=== PATIENT | male | born 1960 | race Caucasian/White ===

== ENCOUNTER 2025-08-21 12:29 | Outpatient (CLI) | payer MEDICARE, SELFPAY ==
--- NOTE | ~2025-08-21 | DEXA_ITS ---
Bone Density Report Name: SWAPNIL LADD Age: 65 Sex: Male Ethnicity: White Date of : 1960 Indication: height loss; Referring Provider: WHITNEY*, LOCO Andujar Study: Bone densitometry was performed. Exam Date: August 21, 2025 Accession number: [id number] Bone Density: Region BMD T-score Z-score Classification AP Spine(L1-L4) 1.184 0.8 1.7 Normal Femoral Neck (Left) 0.643 -2.1 -1.0 Osteopenia Total Hip (Left) 0.826 -1.4 -0.8 Osteopenia Femoral Neck (Right) 0.666 -1.9 -0.8 Osteopenia Total Hip (Right) 0.779 -1.7 -1.1 Osteopenia Total Hip Mean 0.803 -1.6 -1.0 Osteopenia World Health Organization criteria for BMD impression classify patients as: Normal (T-score at or above -1.0), Osteopenia (T-score between -1.0 and -2.5), or Osteoporosis (T-score at or below -2.5). 10-year Fracture Risk(1): Major Osteoporotic Fracture 7.8% Hip Fracture 3.0% Reported Risk Factors: [place] (), Neck BMD=0.643, BMI=22.1, smoking (1) FRAX(R) Version 3.08. Fracture probability calculated for an untreated patient. Fracture probability may be lower if the patient has received treatment. Clinical Information Provided by Patient: Smokes Has used the following medications: Vitamin D, Calcium Patient maximum height was 73.0 Drinks caffeinated beverages Impression: The patient has low bone mass, based on the Left Femoral Neck T-score. The patient has an estimated ten-year risk of hip fracture of 3% and an estimated ten-year risk of major fracture of 7.8%, based on the WHO FRAX algorithm. The patient has risk factors, including: smoking. Discussion: BONE DENSITY IS LOW AT ONE OR MORE SKELETAL SITES. THE PATIENT'S BMD AND CLINICAL RISK FACTORS CONTRIBUTE TO THIS PATIENT'S INCREASED RISK OF FRACTURE. This patient's lowest T-score is low at one or more skeletal sites. It meets the World Health Organization's (WHO) criteria for ?low bone mass? (T-score between -1.0 and -2.5). The patient's 10-year risk of hip fracture as calculated by FRAX exceeds the threshold where pharmacological therapy is recommended by the National Osteoporosis Foundation (NOF). However, all treatment decisions require clinical judgment and consideration of individual patient factors, including patient preferences, comorbidities, previous drug use, risk factors not captured in the FRAX model (e.g., frailty, falls, vitamin D deficiency, increased bone turnover, interval significant decline in bone density) and possible under or overestimation of fracture risk by FRAX. The patient should follow a healthful lifestyle (good nutrition with adequate calcium and vitamin D, and appropriate weight-bearing exercise). Follow-Up: Consider repeating this study in 2 years to reassess this patient's status, or sooner if there is some new clinical indication. Reported by: TIEN on 08/21/2025 2:00:00 PM. Reviewed, dictated and finalized at location A.
--- OUTSIDE RECORDS SUMMARY | 2025-08-21 12:45 | XMS_ITS | Data Portability ---
Author Organization [place] [facility] Main Office Address [address] [place] [address] Assessment Encounter Date Assessment Date Assessment LastModified by Organization Details LastModified Time 07/12/2024 07/12/2024 By today's history and exam the patient is noted to have resolving olecranon bursitis of the right elbow. This spontaneously drained and the antibiotics have appeared to help clear things up he has no evidence of infection at this time. X-rays show what appears to be a small possible chip fracture of the olecranon from his fall in November on the ice. This is very subtle in nature. I have advised him to continue to use Neosporin ointment on the small skin lesion where the opening and spontaneous drainage occurred he will keep a Band-Aid on it he will avoid getting into things like swimming pools hot tubs or lakes and soaking it for now he did ask about swimming. I have advised him to give it more time wait till that area in the skin is completely healed. He will finish out his oral antibiotics prescribed by his primary care physician and avoid leaning on the elbow. I think for now he can be dismissed if the fluid collection returns restarts to have any signs of infection whatsoever he will call immediately he voiced understanding and agrees above plan call for any further problems difficulties or questions. [email or web address] Not available 07/12/2024 16:47:08 Plan of Treatment Reminders Order Date Submit Date Provider Last Modified By Organization Details Last Modified Time Details Appointments None recorded. Lab osmolality, serum 2024 025 [email or web address] [facility], [address] [address], [place], [address], 12:18:41 osmolality, urine 2024 025 [email or web address] [facility], [address], [place], [address], 12:18:42 PSA, serum or plasma 2024 025 [facility], [address], [place], [address], 12:18:42 CMP, serum or plasma 2024 025 [email or web address] [facility] (Lab), [address] [place], [address], 16:52:00 lipid panel, serum 2024 025 [email or web address] [facility] (Lab), [address] [place], [address], 16:52:00 CBC w/ auto diff 2024 025 [email or web address] [facility] (Lab), [address] [place], [address], 16:52:00 Referral None recorded. Procedures None recorded. Surgeries None recorded. Imaging XR, elbow 2023 024 [email or web address] [facility], [address], [place], [address], 4 16:53:47 Medication Orders clindamycin HCl 300 mg capsule 2023 024 [email or web address] [id number], [address] , [place], [place], [id number], 15:32:16 Patient TargetsNo targets recorded. Patient Instructions Encounter Date Encounter Id Patient Instructions Last Modified By Organization Details Last Modified Time 06/30/2024 [id number] Infection of the right olecranon bursa, history of chronic pancreatitis, peripheral vascular disease and GERD all clinically stable. Will set up with doctors due for further evaluation of the elbow place on some clindamycin 300 mg q.i.d. In the interim. Additional Orders - Directives - Recommendations 1. Set up with Dr. Deal for evaluation right elbow drainage 2. x-rays of the right elbow Keep Appointment: Thu 01:30 PM [place] Portions of the record may have been created with voice recognition software. Occasional wrong-word or s ound-a-like substitutions may have occurred due to the inherent limitations of voice recognition software. Read the chart carefully and recognize, using context, where substitutions have occurred. [email or web address] Not available 06/30/2024 11:31:15 09/28/2024 [id number] Follow-up for essential hypertension, peripheral vascular disease, hyperlipidemia and osteopenia all clinically stable. No need for any blood work at this time. Will continue on current Rx. Was given a influenza shot. Will follow-up in four months. Continue on current Rx Additional Orders - Directives - Recommendations 1. Bone density scan with history of osteopenia Follow Up: 4 Months Approximate Date: 01/26/2025 Portions of the record may have been created with voice recognition software. Occasional wrong-word or s ound-a-like substitutions may have occurred due to the inherent limitations of voice recognition software. Read the chart carefully and recognize, using context, where substitutions have occurred. [email or web address] Not available 09/28/2024 14:59:45 03/28/2025 [id number] Follow-up essent ial hypertension, GERD, hyperlipidemia, peripheral vascular disease and chronic pancreatitis all clinically stable. Will continue with current medications. Will check blood work in the form of CBC, CMP, lipid. Continue on current Rx and follow-up in four months Follow Up: 4 Months Approximate Date: 07/26/2025 Portions of record are template driven. When necessary additional context will be provided. Additionally some portions have been created with voice recognition software. Occasional wrong-word or s ound-a-like substitutions may have occurred due to the inherent limitations of voice recognition software. Read the chart carefully and recognize, using context, where substitutions may have occurred. Created: Thomas Bernstein M.D. 03.28.2025 02:39 PM [email or web address] Not available 03/28/2025 15:39:06 08/01/2025 [id number] Medicare wellnes s evaluation risk assessment stable. Follow-up for essential hypertension, hyperlipidemia, peripheral vascular disease, hyponatremia. Plan to check a serum osmolality and urine osmolality. Pending those results may need further evaluation. Will continue on current Rx will get a PSA as well as bone density scan. Advised on FDA Recommended Immunizations including but not limited to Influenza, COVID,Tetanus,TDAP, Pneumococcal,RSV and Shingles Additional Orders - Directives - Recommendations 1. PSA 0.76 NG/ML N 2. DEXA Scan Follow Up: 4 Months Approximate Date: 11/29/2025 Portions of record are template driven. When necessary additional context will be provided. Additionally some portions have been created with voice recognition software. Occasional wrong-word or s ound-a-like substitutions may have occurred due to the inherent limitations of voice recognition software. Read the chart carefully and recognize, using context, where substitutions may have occurred. Created: Thomas Bernstein M.D. 08.01.2025 03:23 PM [email or web address] Not available 08/01/2025 16:23:06 Reason for Referral None Reported. Results Created Date Observation Date Name Description Value Unit Range Abnormal Flag Note LastModifiedBy Organization Detail LastModifiedTime 07/12/20 24 XR, elbow No observ ation record ed. [email or web address] [facility] [address], [place], [address], 07/12/2024 16:52:42 08/03/20 24 08/03/2024 US, duple x, arter ial, lower extre mity, compl ete No observ ation record ed. [email or web address] [facility] [address], [place], [address], 08/03/2024 15:16:52 08/11/20 24 08/10/2024 US, carot id arter y No observ ation record ed. [email or web address] [facility] [address], [place], [address], 08/12/2024 00:11:35 10/04/20 10/04/2024 pharm acolo gic nucle ar stres s test No observ ation record ed. [address] [facility] [address], [place], [address], 10/04/2024 17:22:20 11/11/20 24 11/11/2024 US, echoc ardio gram No observ ation record ed. [address] [facility] [address], [place], [address], 11/11/2024 13:41:04 11/11/20 24 11/11/2024 US, duple x, arter ial, lower extre mity, compl ete No observ ation record ed. [address] [facility] [address], [place], [address], 11/11/2024 13:41:52 11/11/20 24 11/11/2024 US, duple x, renal arter y No observ ation record ed. [address] [facility] [address], [place], [address], 11/11/2024 13:55:30 Result Notes None recorded. Problems Name Problem SNOMED Code Status Onset Date Resolution Date Notes Provider Name and Address Organization Details Recorded Time Tobacco user 448270321 Active Not Available [facility] 3 01:17:51 Injury of ankle 323257842 Active Not Available [facility] 3 01:17:51 CT of abdomen abnormal 7586967919360 9107 Active Not Available [facility] 3 01:17:51 Lateral epicondyli tis 967075215 Active Not Available [facility] 3 01:17:51 Chronic pancreatit is 633532616 Active Not Available [facility] 3 01:17:51 Gastroesop hageal reflux disease 218066728 Active Not Available [facility] 3 01:17:51 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 Active Not Available [facility] 3 01:17:51 Headache 71011350 Active Not Available [facility] 3 01:17:51 Shoulder joint pain 516651611 Active Not Available [facility] 3 01:17:51 Pain in calf 653052908 Active Not Available [facility] 3 01:17:51 Depressive disorder 33692735 Active Not Available [facility] 3 01:17:51 Inguinal hernia 530778309 Active Not Available [facility] 3 01:17:51 Epidermoid cyst of skin 172856959 Active Not Available [facility] 3 01:17:51 Pilonidal cyst 06188976 Active Not Available [facility] 3 01:17:51 Transient hypertensi on 31814443 Active Not Available [facility] 3 01:17:51 Sebaceous cyst of scrotum 18437537 Active Not Available [facility] 3 01:17:51 Closed fracture of fifth metatarsal bone 98509727 Active Not Available [facility] 3 01:17:51 Low back pain 724592778 Active 2021 Not Available [facility] 3 01:17:51 Allergic rhinitis 02322127 Active 2021 Not Available [facility] 3 01:17:51 Chronic low back pain 647233362 Active 2021 Not Available [facility] 3 01:17:51 Osteopenia 314281451 Active 2021 Not Available [facility] 3 01:17:51 Testicular hypofuncti on 330138530 Active 2022 Not Available [facility] 3 01:17:51 Spinal stenosis of lumbar region 06749190 Active 2023 Thomas Bernstein MD [address] [address], [place], [address] , [facility] [employer] [facility] 4 12:27:52 Disorder of prostate 63434295 Active 2023 Thomas Bernstein MD [address], [place], [address] , [facility] 4 12:29:30 Infection of olecranon bursa of right elbow 2414507094481 101 Active 2023 Thomas Bernstein MD [address], [address], [place], [address] , [facility] 4 11:23:33 Peripheral vascular disease 875158307 Active 2023 Thomas Bernstein MD [address], [address], [place], [address] , [facility] 4 11:25:50 Pain of right elbow joint 0099240292715 9109 Active 2023 Hailee Zapata CNA null, [place] [facility] 4 15:35:24 Bursitis of olecranon of right elbow 9420791767912 08 Active 2023 JOSH Marmolejo [address], [address], [place], [address] , [facility] 4 16:51:02 Hyperchole sterolemia 11913491 Active 2023 Thomas Bernstein MD [address], [address], [place], [address] , [facility] 4 14:55:58 Essential hypertensi on 42639675 Active 2023 Thomas Bernstein MD [address], [facility] [address], [place], [address] , [facility] 4 14:57:14 Chronic rhinitis 36856270 Active 2024 Norma Amador CMA null, [place] [facility] 5 15:47:56 Hyponatrem ia 73289832 Active 2024 Thomas Bernstein MD [address], [facility] [address], [place], [address] , [facility] 5 16:17:41 Osteopenia with high fracture risk 3535427299808 Active 2024 [facility] 16:34:54 Problem Notes None recorded. Procedures Surgical History Date Name Laterality Status Provider Name and Address Organization Details Recorded Time Endoscopy completed Not Available [facility] 0 01/21/2023 05:54:22 colonoscopy completed Not Available [facility] 01/21/2023 05:54:22 excision of basal cell carcinoma completed Hailee Zapata CNA [facility] [employer] [facility] 07/12/2024 15:34:41 Imaging Results None recorded. Procedure Notes None recorded. Medical Equipment None Reported. Allergies No known drug allergies Medications Name Sig Start Date Stop Date Status Note LastModified by Organization Details LastModified Time nifedipine ER 30 mg tablet,exte nded release 24 hr TAKE 1 TABLET BY MOUTH DAILY active Not Available Not Available No t Available Augmentin 875 mg-125 mg tablet Take 1 tablet every 12 hours by oral route. 12/28 completed Not Available Not Available Not Available prednisone 10 mg tablet active Not Available Not Available Not Available atorvastati n 20 mg tablet TAKE 1 TABLET BY MOUTH DAILY active Not Available Not Available No t Available clindamycin HCl 300 mg capsule TAKE 1 CAPSULE BY MOUTH EVERY 6 HOURS 07/12 completed Not Available Not Available Not Available sildenafil 50 mg tablet TAKE 1 TABLET BY MOUTH EVERY DAY 1 HOUR BEFORE SEXUAL ACTIVITY NEEDED active Not Available Not Available No t Available benzonatate 200 mg capsule Take 1 capsule 3 times a day by oral route. 03/06 completed Not Available Not Available Not Available Zithromax Z-Trent 250 mg tablet Take 2 TABLET EVERY DAY by oral route for 1 day then one daily 09/13 completed Not Available Not Available Not Available acetaminoph en 300 mg-codeine 30 mg tablet TAKE 1 TABLET BY MOUTH EVERY 6 HOURS NEEDED. active Not Available Not Available No t Available clopidogrel 75 mg tablet TAKE 1 TABLET BY MOUTH DAILY active Not Available Not Available No t Available aspirin 81 mg tablet,sha yed release TAKE 1 TABLET BY MOUTH EVERY DAY active Not Available Not Available No t Available oxycodone-a cetaminophe n 5 mg-325 mg tablet 04/22 completed Not Available Not Available Not Available Vitamin C 1,000 mg tablet Take 1 tablet every day by oral route. 2021 active Not Available Not Available Not Avai lable lorazepam 0.5 mg tablet Take 1 tablet 3 times a day by oral route as needed. 07/12 completed Not Available Not Available Not Available hyoscyamine ER 0.375 mg tablet,exte nded release,12 hr Take 1 tablet every 12 hours by oral route as needed. 09/24 completed Not Available Not Available Not Available hyoscyamine 0.125 mg disintegrat ing tablet Place 1 tablet every 4 hours by sublingua l route. 03/06 completed Not Available Not Available Not Available pantoprazol e 40 mg tablet,sha yed release TAKE 1 TABLET BY MOUTH DAILY active Not Available Not Available No t Available hyoscyamine 0.125 mg sublingual tablet active Not Available Not Available Not Available losartan 25 mg tablet TAKE 1 TABLET BY MOUTH DAILY active Not Available Not Available No t Available Valtrex 1 gram tablet Take 1 tablet 3 times a day by oral route. 02/05 completed Not Available Not Available Not Available vitamin B complex tablet Take 1 tablet every day by oral route. 2021 active Not Available Not Available Not Avai lable acetaminoph en 300 mg-codeine 60 mg tablet Take 1 tablet every 6 hours by oral route. 04/22 completed Not Available Not Available Not Available hydrochloro thiazide 25 mg tablet TAKE 1 TABLET BY MOUTH EVERY DAY active Not Available Not Available No t Available ergocalcife rol (vitamin D2) 1,250 mcg (50,000 unit) capsule active Not Available Not Available Not Available Tenmile 7.5 mg-325 mg tablet Take 1 tablet every 6 hours by oral route. 05/12 completed Not Available Not Available Not Available methylpredn isolone 4 mg tablets in a dose pack FOLLOW PACKAGE DIRECTION S 04/13 completed Not Available Not Available Not Available fluticasone propionate 50 mcg/actuati on nasal spray,suspe nsion SPRAY 2 SPRAYS IN EACH NOSTRIL TWICE DAILY NEEDED active Not Available Not Available No t Available ipratropium bromide 21 mcg (0.03 %) nasal spray SPRAY 2 SPRAYS IN EACH NOSTRIL 2-3 TIMES PER DAY active Not Available Not Available No t Available Os-Sharif 500 + D3 500 mg-5 mcg (200 unit) tablet Take 1 tablet twice a day by oral route. 01/06 completed Not Available Not Available Not Available escitalopra m 10 mg tablet TAKE 1 TABLET BY MOUTH EVERY DAY active Not Available Not Available No t Available Tylenol-Cod eine #3 one every six hours as needed 05/12 completed Not Available Not Available Not Available Os-Sharif 500 + D3 twice a day 2012 active Not Available Not Available Not Avai lable vitamin E (dl, acetate) 180 mg (400 unit) capsule Take 1 capsule every day by oral route. 2021 active Not Available Not Available Not Avai lable Creon 12,000-38,0 00-60,000 unit capsule,del ayed release active Not Available Not Available Not Available Creon one with meals daily 2012 active Not Available Not Available Not Avai lable fluticasone prop.50 mcg spray,suspe n-sod.chlor monica 0.9% nasal spray kit shake liquid and use 2 sprays in each nostril twice a day 12/07 completed Not Available Not Available Not Available Sutab 1.479-0.188 -0.225 gram tablet DIRECTED 04/25 completed Not Available Not Available Not Available Vitals Date Recorded Body height Body mass index (BMI) Body weight Heart rate Body temperature Oxygen saturation Oxygen saturation in Arterial blood by Pulse oximetry Systolic And Diastolic Provider Name and Address Organization Details Last Updated DateTime 5 182.88 cm 21.8 kg/m2 33601.5 8 g 74 /min 97 [degF] 97 % 97 % 140/88 mm[Hg] Sue Arellano [facility] [employer] 5 15:21:51 Date Recorded Body height Body mass index (BMI) Body weight Heart rate Body temperature Oxygen saturation Oxygen saturation in Arterial blood by Pulse oximetry Systolic And Diastolic Provider Name and Address Organization Details Last Updated DateTime 4 180.34 cm 22.6 kg/m2 69799.9 6 g 71 /min 97.9 [degF] 98 % 98 % 142/96 mm[Hg] CLINT Osei [place] [employer] [facility] [employer] [facility] 4 11:01:27 Date Recorded Body height Body mass index (BMI) Body weight Provider Name and Address Organization Details Last Updated DateTime 07/12/2024 182.88 cm 22.4 kg/m2 08441.74 g Hailee Zapata CNA [facility] [employer] [facility] 07/12/2024 15:31:39 Date Recorded Body height Body mass index (BMI) Body weight Heart rate Body temperature Oxygen saturation Oxygen saturation in Arterial blood by Pulse oximetry Systolic And Diastolic Provider Name and Address Organization Details Last Updated DateTime 5 182.88 cm 22 kg/m2 76958.9 6 g 68 /min 97.2 [degF] 97 % 97 % 120/78 mm[Hg] Sue Arellano [facility] [employer] [facility] 5 15:59:17 Date Recorded Body height Body weight Heart rate Body temperature Oxygen saturation Oxygen saturation in Arterial blood by Pulse oximetry Systolic And Diastolic Provider Name and Address Organization Details Last Updated DateTime 4 182.88 cm 15513.9 3 g 69 /min 97 [degF] 98 % 98 % 150/90 mm[Hg] CLINT Osei [facility] 4 14:48:05 Social History Question Answer Notes LastModified by Organizat ion Details LastModified Time Tobacco Smoking Status Current Every Day Smoker Not Available [facility] 01/21/2023 05:54:08 What Is Your Level Of Caffeine Consumption? Moderate [id number] Information not available 01/21/2023 How Much Tobacco Do You Chew? None [id number] Information not available 01/21/2023 In The 14 Days Before Symptom Onset, Have You Had Close Contact With A Laboratory-confirm ed COVID-19 While That Case Was Ill? No [id number] Information not available 01/21/2023 In The 14 Days Before Symptom Onset, Have You Had Close Contact With A Person Who Is Under Investigation For COVID-19 While That Person Was Ill? No [id number] Information not available 01/21/2023 What Type Of Diet Are You Following? REGULAR [id number] Information not available 01/21/2023 Which Illicit Or Recreational Drugs Have You Used? None [id number] Information not available 01/21/2023 What Was The Date Of Your Most Recent Tobacco Screening? 12/17/2018 [id number] Information not available 01/21/2023 How Much Tobacco Do You Smoke? 0.5 PPD [id number] Information not available 01/21/2023 How Many Years Have You Smoked Tobacco? 30 [id number] Information not available 01/21/2023 Sex: Unknown Functional Status Question Answer Note LastModified by Organizat ion Details LastModified Time What is your level of alcohol consumption? Moderate [email or web address] Information not available 07/12/2024 Do you or have you ever used smokeless tobacco? 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 Never used electronic cigarettes [id number] Information not available 01/21/2023 What is your exercise level? Occasional [id number] Information not available 01/21/2023 Mental Status None recorded. Family History Relationship Description Onset Age of this Age Resolved Age Notes LastModified by Organization Details LastModified Time Mother Malignant tumor of pancreas 75 [id number] Not available 01/21/2023 05:54:24 Mother Seizure disorder 75 [id number] Not available 01/21/2023 05:54:24 Mother Hypoglycemia 75 MIGRATION.0 30 [id number] Not available 01/21/2023 05:54:24 Mother Cerebrovascu lar accident 75 [id number] Not available 01/21/2023 05:54:24 Father Malignant neoplasm of lung 66 [id number] Not available 01/21/2023 05:54:24 Sister Hypertensive disorder [id number] Not available 01/21/2023 05:54:24 Medical History Condition Response NERVE DISEASE N BLINDNESS N RHEUMATIC FEVER N KIDNEY STONES N BLADDER PROBLEMS N MRSA N OTHER # 1 N POLIO N LUNG DISEASE/DISORDER N HISTORY OF DRUG ABUSE N COPD N RADIATION / CHEMOTHERAPY N Other # 2 N BLOOD DISEASES N EAR OR HEARING PROBLEMS N MUMPS N SHINGLES N DEPRESSION (INCLUDING POST ) Y BOWEL PROBLEMS N STROKE/TIA N ULCERS N BENIGN PROSTATIC HYPERPLASIA N MEASLES N HYPOTENSION N MYOCARDIAL INFARCTION N OBESITY N GERD/NAUSEA N ANEURYSM N URINARY/BLADDER/KIDNEY PROBLEMS N CORONARY ARTERY DISEASE (CAD) N ADDICTION CONCERNS N Impotence N ENDOMETRIOSIS N USE OF BLOOD THINNERS N SKIN PROBLEMS N GASTROINTESTINAL DISORDER N PERIPHERAL VASCULAR DISEASE N MUSCLE,JOINT OR BONE PROBLEMS N GASTROINTESTINAL BLEEDING N BLOOD CLOTS N ASTHMA N CATARACTS N ERECTILE DYSFUNCTION N VARICOSITIES N GI PROBLEMS N Low Testosterone N INFERTILITY N AIDS/HIV N CHEMOTHERAPY / RADIATION N LIVER DISEASE N MALE HYPOGONADISM N HYPERTENSION Y Deficiency N TOURETTE'S N ANXIETY DISORDER N BLOOD TRANSFUSION N ANEMIA/BLOOD DISORDER N CHRONIC EAR INFECTIONS N BRONCHITIS N TUBERCULOSIS N GLAUCOMA N FOOT PROBLEM N DIVERTICULITIS N SLEEP APNEA N CHICKENPOX N INFECTIOUS DISEASE N PROSTATE N HEART ARRHYTHMIA N INSOMNIA N HIGH CHOLESTEROL / HYPERLIPIDEMIA N EYE PROBLEMS N HYPERTHYROIDISM N EDEMA N CHRONIC PAIN SYNDROME N HYPOTHYROIDISM N CAROTID BLOCKAGE N CONSTIPATION N BACK / NECK PROBLEMS N HAVE YOU BEEN HOSPITALIZED OR SEEN IN [facility] IN THE PAST YEAR ? N ATHEROSCLEROSIS N BREAST PROBLEMS N DIALYSIS N ECZEMA N OSTEOPOROSIS N ARTHRITIS Y NO SIGNIFICANT PAST MEDICAL HISTORY N APPENDICITIS N DIABETES, TYPE N BAD TEETH N ENT N HEARTBURN / REFLUX Y AUTISM SPECTRUM DISORDER (ASD) N HEPATITIS / LIVER DISEASE N GOUT N SLEEP DISORDER N ALZHEIMER'S DISEASE N Brain Problems N DEMENTIA N HERPES N SEIZURES/EPILEPSY N HEADACHES/MIGRAINES N VASCULAR DISEASE N PACEMAKER N Blood Disorder N DIZZINESS N HEART DISEASE/HEART PROBLEMS N KIDNEY DISEASE N MULTIPLE SCLEROSIS N CANCER: SPECIFY Y CARDIAC ARRHYTHMIA N ATRIAL FIBRILLATION N Gall Stones N PULMONARY EMBOLISM N AUTOIMMUNE DISEASE N Immunizations Vaccine Type Date Status Note Provider Nam e and Address Organization Details Recorded Time Influenza, split virus, trivalent, preservative 3 completed Not Available [facility] 08/01/2025 15:17:01 Influenza, split virus, quadrivalent, preservative 6 completed Not Available [facility] 08/01/2025 15:17:01 Influenza, split virus, quadrivalent, PF 7 completed Not Available [facility] 08/01/2025 15:17:01 Influenza, split virus, quadrivalent, PF 8 completed Not Available [facility] 08/01/2025 15:17:01 Influenza, MDCK, quadrivalent, preservative 9 completed Not Available [facility] 08/01/2025 15:17:01 Influenza, split virus, quadrivalent, PF 0 completed Not Available [facility] 08/01/2025 15:17:01 COVID-19, mRNA, LNP-S, PF, 30 mcg/0.3 mL dose 2 completed Not Available [facility] 08/01/2025 15:17:01 COVID-19, mRNA, LNP-S, PF, joel-sucrose, 30 mcg/0.3 mL 3 completed Not Available [facility] 08/01/2025 15:17:01 Influenza, split virus, quadrivalent, preservative 1 completed Not Available [facility] 01/21/2023 06:05:10 SARS-COV-2 (COVID-19) vaccine, UNSPECIFIED 1 completed Not Available [facility] 01/21/2023 06:05:11 SARS-COV-2 (COVID-19) vaccine, UNSPECIFIED 1 completed Not Available [facility] 01/21/2023 06:05:11 COVID-19, mRNA, LNP-S, bivalent, PF, 30 mcg/0.3 mL dose 2 completed Not Available [facility] 01/21/2023 06:05:11 Influenza, split virus, quadrivalent, PF 2 completed Not Available [facility] 01/21/2023 06:05:11 Influenza, high-dose, quadrivalent, PF 3 completed Thomas Bernstein MD [address] [place] [address], [address], [facility] 10/14/2023 12:43:31 Past Encounters Encounter ID Performer Location Encounter Start Date Encounter Closed Date Diagnosis/Indication Diagnosis SNOMED-CT Code Diagnosis ICD10 Code Diagnosis IMO Codes Diagnosis Note [id number] Thomas Bernstein MD [facility] Internal Med [address] [place] [address] [address] 03/22/2021 00:00:00 03/22/2021 17:02:00 [id number] _ATHN_MIGR ATION_1 _ATHENA_M IGRATION_ DEFAULT_1 _1 , 05/01/2021 00:00:00 05/01/2021 11:34:02 [id number] Thomas Bernstein MD [facility] [address] [place] [address] [place] [address] 09/13/2021 00:00:00 09/13/2021 16:15:19 [id number] Thomas Bernstein MD S[facility]G Internal [facility] [address] [place] [address] , [place] [address] 02/21/2022 00:00:00 02/21/2022 12:14:04 [id number] Thomas Bernstein MD S_G Internal Med [facility] [address] [address] 03/26/2022 00:00:00 03/26/2022 11:17:32 [id number] Thomas Bernstein MD S_G Internal Med [facility] [address] [address] 09/24/2022 00:00:00 09/24/2022 12:33:55 [id number] Thomas Bernstein MD S_G Internal Med [place] [address] [address] 04/01/2023 12:06:36 04/01/2023 12:24:00 Chronic pancreatitis 655082455 K86.1 Gastroesop hageal reflux disease 551850050 K21.9 Testicular hypofunction 738177392 E29.1 Disorder of prostate 302 [address] N42.9 Screening for cardiovascular system disease 039316780 Z13.6 [id number] Thomas Bernstein MD S_[facility] Internal Med [place] [address] [address] 10/14/2023 12:24:47 10/14/2023 12:47:35 Chronic pancreatitis 542978012 K86.1 Gastroesop hageal reflux disease 113547807 K21.9 Depressive disorder 3548 9007 F32.A Administra tion of influenza vaccine 95805575 Z23 [id number] Thomas Bernstein MD S_G Internal Med [facility] [address] [address] 04/13/2024 12:01:02 04/13/2024 12:38:15 Gastroesophageal reflux disease 511307125 K21.9 Chronic pancreatitis 235 941867 K86.1 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 [place] [address] 07/12/2024 15:02:45 07/12/2024 15:57:25 Pain of right elbow joint 1800191822 2041733 M25.521 Bursitis o f olecranon of right elbow 7017025224 22242 M70.21 [id number] Thomas Bernstein MD [facility] Internal Med [facility] [address] [address] 09/28/2024 14:38:42 09/28/2024 15:16:55 Osteopenia 942834012 M85.80 Peripheral vascular disease 305140878 I73.9 Hypercholesterolemia 136 49425 E78.00 Essential hypertension 22140899 I10 [id number] Thomas Bernstein MD [facility] Internal Med [facility] [address] [address] 03/28/2025 15:00:08 03/28/2025 15:44:09 Essential hypertension 84819936 I10 Gastroesop hageal reflux disease 493155764 K21.9 Hypercholesterolemia 136 69196 E78.00 Peripheral vascular disease 687664407 I73.9 Chronic pancreatitis 235 538468 K86.1 [id number] Thomas Bernstein MD [facility] Internal Med [facility] [address] [address] 08/01/2025 15:15:42 08/01/2025 16:29:27 History and physical examination, annual for health maintenance 99994100 Z00.00 7701878 Essential hypertension 02442027 I10 Hypercholesterolemia 136 01107 E78.00 Peripheral vascular disease 508714487 I73.9 Hyponatremia 00401585 E8 7.1 27152 Disorder of prostate 302 65319 N42.9 Health Concerns Section Related Observation LastModified by Organization Detai ls LastModified Time None Recorded Concern Status LastModified by Organization Details LastModified Time None Recorded Advance Directives Directive None Recorded Payers Insurance Date Sequence Insurance Name Policy Number Policy Epstein Covered Member ID Epstein Member ID Guarantor Name 08/01/2025 1 [facility] [id number] [facility] [id number] [facility] 08/01/2025 1 [facility] (MEDICARE REPLACEMENT/A DVANTAGE - PPO) [id number] [facility] [id number] [facility] Notes Date Note Type Note Provider Name and Address Organization Details Recorded Time 06/30/20 24 text/htm l Patient Name: Hardy Blantonate Of Service: June ( 06.30.2024 ): 1960 Age: 64 There has been approximately a 3 lb weight loss since 04/13/2024. This represents approximately a 1.8% change in weight. Weight change attributable to lifestyle changes. Vital Signs:Blood Pressure: Sitting Rt. Arm 142/96Pulse: Sitting 71 /min and RegularRespiratory Rate: 14Height 72 in or 1.8 mWeight 162 lb or 73.5 kgBMI 22.0Temperature: 97.9 F or 36.6 CPulse Oximetry: 98 % at rest on no oxygen Chief Complaint: Addressed in HPI Problems or conditions discussed in the HPI were the only ones reviewed during the encounter.Only social and family history addressed in the HPI were reviewed during this encounter. Attendant(s): NoneConstitutional and Systemic Symptoms:none Medication Reconciliation: from medication list. [id number]: Arterial Doppler shows severe arterial disease in the tibial arteries. Needs further evaluation. Will need to see Cardiology. 06-21-2024: Peripheral arteriogram Severe bilateral superficial femoral artery calcific disease of roughly 80% noted. Severe below the knee disease with single-vessel runoff noted in the left leg and in essence single-vessel runoff noted in the right leg. Occlusion of the anterior tibial arteries bilaterally. History of Present Illness #1. Recent history of transient injury to the right elbow. Followed up several weeks later by some drainage. Has had some purulent drainage time currently not having any but is having considerable pain and discomfort. Will obtain radiographic studies in the area. Also set up with orthopedics for further evaluation.: #2. Hx of peripheral vascular disease. There has been no increase in intensity, severity or duration of claudication symptoms. Exertional capacity has remained essentially unchanged. Is able to walk less than 100 feet without developing any claudication. No rest pain noted. #3. Chronic pancreatitis: Hx of chronic recurrent pancreatitis. Has not had any recent change in frequency, duration or intensity of any abdominal pain. Stool are normal and no change in consistency. There has been no weight loss or other signs of maldigestion or malabsorption. #4. Hx of esophageal reflux currently stable. Hx of Complications: none The severity, duration and intensity of symptoms have improved. Frequency: most meals Treatment consists medications taken on a regular basis. Current therapy includes Pantoprazole. There has been no nausea, eructation, vomiting, hematemesis, dysphagia, velopharyngeal insufficiency and odynophagia. No change in he frequency or intensity of symptoms. Has had no melena. Has had no . Discussed use of H2 antagonists and the possibility of trying to reduce the frequency of the use of any PPI inhibitors and try H2 antagonists to see if symptoms can be controlled with lease intensive therapy since a number of complications are associated with chronic prolonged use of PPI inhibitors. Active Medication ListFlonase 0.05 MG/SPRAY (SPRAY, METERED - NASAL) One Arcadia Each Nostril As DirectedOs-sharif D 500 MG One BidTylenol W/Codeine #3 One Every Six Hours As Needed For PainVitamin C DailyVitamin E Once DailyVitamin B-complex DailyPantoprazole 40 MG (FOR SUSPENSION, DELAYED RELEASE - ORAL) One Daily Vaccination and Pqgtqamlxaao3220-91 Covid Pngfuc9093-09 Influenza Surgical Zwgfptd8721-11 Ctphfd5683-36 Tyczbyfdi1287-75 Lt. Inguinal Hernia Preventative Testing( ) 04/01/2023 Albumin 4.4 G/DL N( ) 04/01/2023 PSA 0.76 NG/ML N 04/01/2025(X) 01/12/2020 DEXA Scan 01/12/2022( ) 01/14/2019 Colonoscopy (10 Years) 01/14/2029 Social HistorySmokes one pack daily for over 30 years. Drinks some alcohol. Family HistoryMother is at 75 with seizure disorder and cancer of the pancreas.Father of lung cancer at 66.Has one sister with hypertension. Thomas Bernstein MD [address], [facility] [address], [place], [address], [place] [facility] 06/30/2024 11:41:11 07/12/20 24 text/htm l The patient is a 64-year-old male who presents with a recent history of draining olecranon bursitis right elbow. He states about 4 weeks ago he noted that he was getting a large pocket of fluid around the right elbow it was a little red but he denies any significant tenderness no fevers chills night sweats no constitutional symptoms no signs of other severe infection. He states the only thing he can think of was that in November he slipped in the ice fell and struck his right elbow on the point of the olecranon he recovered quickly and did not think much of it. Then about a month ago he started to develop some fluid the sac became rather large and he states that he developed a small area that started to open up he admits to manipulating the fluid sac to the point where eventually the skin opened up and he was able to drain quite a bit of clear serous inflammatory fluid. He denies any signs of cloudiness or pus there was a small amount of blood but otherwise looked clear. He saw his primary care physician who ordered clindamycin he took a 10 day supply which she is just finishing up. He states at this point the swelling and fluid of all subsided there is some thickening of the soft tissue over the olecranon bursa but it appears there is no obvious fluid at this time. He denies any tenderness he states the small hole where the fluid drained from the elbow he is closing up nicely he wears a Band-Aid over it with a small amount of Neosporin ointment changes this daily tries to avoid leaning or bumping on it. No more fluid is draining there is a very small divot in the skin that has some dampness to it but I am unable to express any fluid out of the area it looks like a small abrasion but not full-thickness through the skin at this time. He denies any problems with range of motion of his elbow otherwise feels well comes in today for follow up at the recommendation of his primary care physician. A new past medical history sheet was reviewed and signed on intake sheet of today's date drug allergies current medications family social history previous surgical history 10 point review of systems was reviewed and discussed in detail today with the patient. JOSH Marmolejo [address] [facility], [place], [address], [place] [facility] [employer] 07/12/2024 16:53:17 09/28/20 24 text/htm l Patient Name: Hardy Blantonate Of Service: Thursday ( 09.28.2024 ): 1960 Age: 64 There has been approximately a 5 lb weight gain since 06/30/2024. This represents approximately a 3.1% change in weight. Weight change attributable to lifestyle changes. Vital Signs:Blood Pressure: Sitting Rt. Arm 150/90Pulse: Sitting 69 /min and RegularRespiratory Rate: 16Height 72 in or 1.8 mWeight 167 lb or 75.7 kgBMI 22.6Temperature: 72 F or 22.2 CPulse Oximetry: 98 % at rest on no oxygen Chief Complaint: Addressed in HPI Problems or conditions discussed in the HPI were the only ones reviewed during the encounter.Only social and family history addressed in the HPI were reviewed during this encounter. Attendant(s): NoneConstitutional and Systemic Symptoms:none Medication Reconciliation: from medication list. [id number]: Arterial Doppler shows severe arterial disease in the tibial arteries. Needs further evaluation. Will need to see Cardiology. 06-21-2024: Peripheral arteriogram Severe bilateral superficial femoral artery calcific disease of roughly 80% noted. Severe below the knee disease with single-vessel runoff noted in the left leg and in essence single-vessel runoff noted in the right leg. Occlusion of the anterior tibial arteries bilaterally. 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 Severe anterior tibial artery diseases bilaterally. Unable to get correct CARLOS is due to Medical calcinosis of the arterial garcia. 08-11-2024: Carotid US <50% narrowing of both ICA with antegrade flow in the vertebral. History of Present Illness #1. Essential Hypertension: Stage: Stage I Interval Neurological Complaints no headaches, dizziness, weakness, visual changes, ataxia, aphasia and apraxia. No shortness of breath, orthopnea or cardiovascular symptoms. No other symptoms related to end organ damage. Pressure has been under excellent control. Currently normal. No other end organ symptoms or findings. Therapy reviewed regarding management of hypertension and includes salt restriction and Hydrochlorothiazide, Lipitor, Losartan Potassium and Nifedipine. #2. Type II Hypercholesterolaemia: Currently taking medication and tolerating well. No interval complaints of any muscle pain or arthralgia. No significant liver changes with medications. Last lipid panel: fair control. Therapy reviewed regarding treatment of cholesterol management and include diet and Lipitor. #3. Hx of peripheral vascular disease. There has been no increase in intensity, severity or duration of claudication symptoms. Exertional capacity has remained essentially unchanged. Is able to walk one block without developing any claudication. No rest pain noted. #4. osteopenia. No new complaints of any additional back,hip or other musculoskeletal complaints related to the osteoporosis. No hx of any recent trauma. Currently taking OsCal-D. Has no DEXA scan for more than 1.5 years. The FRAX Score for Hip Fracture is < 3% FRAX score for major fractures < 20% Active Medication ListFlonase 0.05 MG/SPRAY (SPRAY, METERED - NASAL) One Arcadia Each Nostril As DirectedPlavix 75 MG TABLET, FILM COATED One DailyAspirin 81 MG CAPSULE One DailyLipitor 20 MG TABLET, FILM COATED One DailyLosartan Potassium 25 MG TABLET One DailyNifedipine 30 MG TABLET, EXTENDED RELEASE One DailyHydrochlorothiazide 25 MG TABLET One DailyVitamin C DailyVitamin E Once DailyVitamin B-complex DailyPantoprazole 40 MG (FOR SUSPENSION, DELAYED RELEASE - ORAL) One Daily Vaccination and Immunization(X) 2022-09 INFLUENZA(X) 2023-08 [employer] Surgical [id number] Surgery (Left SFA Atherectomy)2024-07 Rt. SFA Ozngcsajdal1490-27 Zyccwk7948-25 Nfrtiwcjh6893-35 Lt. Inguinal Hernia Preventative Testing( ) 04/01/2023 Albumin 4.4 G/DL N( ) 04/01/2023 PSA 0.76 NG/ML N 04/01/2025(X) 01/12/2020 DEXA Scan 01/12/2022( ) 01/14/2019 Colonoscopy (10 Years) 01/14/2029 Social HistorySmokes one pack daily for over 30 years. Drinks some alcohol. Family HistoryMother is at 75 with seizure disorder and cancer of the pancreas.Father of lung cancer at 66.Has one sister with hypertension. Thomas Bernstein MD [address] [facility], [facility] [address], [place], [address], [facility] [employer] 09/28/2024 14:59:59 03/28/20 25 text/htm l Patient Name: Hardy Blantonate Of Service: Thursday ( 03.28.2025 ): 1960 Age: 65 There has been approximately a 27 lb weight loss since 09/28/2024. This represents approximately a 16.2% change in weight. Weight change attributable to lifestyle changes. Vital Signs:Blood Pressure: Sitting Rt. Arm 140/88Pulse: Sitting 74 /min and RegularRespiratory Rate: 16Height 72 in or 1.8 mWeight 140 lb or 63.5 kgBMI 19.0Temperature: 97 F or 36.1 CPulse Oximetry: 97 % at rest on no oxygen Chief Complaint: Addressed in HPI Problems or conditions discussed in the HPI were the only ones reviewed during the encounter.Only social and family history addressed in the HPI were reviewed during this encounter. Attendant(s): NoneConstitutional and Systemic Symptoms:none Medication Reconciliation: from medication list. [id number]: Arterial Doppler shows severe arterial disease in the tibial arteries. Needs further evaluation. Will need to see Cardiology. 06-21-2024: Peripheral arteriogram Severe bilateral superficial femoral artery calcific disease of roughly 80% noted. Severe below the knee disease with single-vessel runoff noted in the left leg and in essence single-vessel runoff noted in the right leg. Occlusion of the anterior tibial arteries bilaterally. 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 Severe anterior tibial artery diseases bilaterally. Unable to get correct CARLOS is due to Medical calcinosis of the arterial garcia. 08-11-2024: Carotid US <50% narrowing of both ICA with antegrade flow in the vertebral. 10-04-2024: Pharmacological stress shows showed a normal sinus rhythm left ventricular hypertrophy. Normal exercise produced ECG with no ST segment or T-wave changes with exercise. Normal left ventricular size left ventricular ejection fraction 72%. Normal myocardial perfusion with no evidence of ischemia or scar 11-11-2024: Echocardiogram shows an estimated ejection fraction of 60%. Mild mitral valve regurgitation. Mild aortic valve regurgitation. The aortic root is slightly dilated at 4.09 cm and the ascending aorta at 4.37 [id number]: arterial Doppler showed pynp-nq-nitddvrk atherosclerotic changes with normal arterial blood flow noted in both lower extremities. Unable to accurately discern ABIs due to hardened [id number]: Renal artery ultrasound normal no evidence any renal artery stenosis History of Present Illness #1. Essential Hypertension: Stage: Stage I Interval Neurological Complaints no headaches, dizziness, weakness, visual changes, ataxia, aphasia and apraxia. No shortness of breath, orthopnea or cardiovascular symptoms. No other symptoms related to end organ damage. Pressure has been under excellent control. Currently normal. No other end organ symptoms or findings. Therapy reviewed regarding management of hypertension and includes salt restriction and Hydrochlorothiazide, Losartan Potassium and Nifedipine. #2. Type II Hypercholesterolaemia: Currently taking medication and tolerating well. No interval complaints of any muscle pain or arthralgia. No significant liver changes with medications. Last lipid panel: fair control. Therapy reviewed regarding treatment of cholesterol management and include diet and Lipitor. #3. Hx of peripheral vascular disease. There has been no increase in intensity, severity or duration of claudication symptoms. Exertional capacity has remained essentially unchanged. Is able to walk one block without developing any claudication. No rest pain noted. #4. Hx of esophageal reflux currently stable. Hx of Complications: none The severity, duration and intensity of symptoms have improved. Frequency: most meals Treatment consists medications taken on intermittent basis. Current therapy includes Pantoprazole. There has been no nausea, eructation, vomiting, hematemesis, dysphagia, velopharyngeal insufficiency and odynophagia. No change in he frequency or intensity of symptoms. Has had no melena. Has had no . Discussed use of H2 antagonists and the possibility of trying to reduce the frequency of the use of any PPI inhibitors and try H2 antagonists to see if symptoms can be controlled with lease intensive therapy since a number of complications are associated with chronic prolonged use of PPI inhibitors. #5. Chronic pancreatitis: Hx of chronic recurrent pancreatitis. Has not had any recent change in frequency, duration or intensity of any abdominal pain. Stool are normal and no change in consistency. There has been no weight loss or other signs of maldigestion or malabsorption. Active Medication ListFlonase 0.05 MG/SPRAY (SPRAY, METERED - NASAL) One Arcadia Each Nostril As DirectedPlavix 75 MG TABLET, FILM COATED One DailyAspirin 81 MG CAPSULE One DailyLipitor 20 MG TABLET, FILM COATED One DailyLosartan Potassium 25 MG TABLET One DailyNifedipine 30 MG TABLET, EXTENDED RELEASE One DailyTylenol W/Codeine #3 Every Six Hours As NeededHydrochlorothiazide 25 MG TABLET One DailyEscitalopram 10 MG TABLET Once DailyVitamin C DailyVitamin E Once DailyVitamin B-complex DailyPantoprazole 40 MG (FOR SUSPENSION, DELAYED RELEASE - ORAL) One Daily Vaccination and Immunization( ) 2024-09 INFLUENZA(X) 2023-08 [employer] Surgical Toakmkz9048-95 Surgery (Left SFA Atherectomy)2024-07 Rt. SFA Hohopvcpfli4850-60 Bvjleq5391-28 Torsjlzlv1488-08 Lt. Inguinal Hernia Preventative Testing( ) 04/01/2023 Albumin 4.4 G/DL N( ) 04/01/2023 PSA 0.76 NG/ML N 04/01/2025(X) 01/12/2020 DEXA Scan 01/12/2022( ) 01/14/2019 Colonoscopy (10 Years) 01/14/2029 Social HistorySmokes one pack daily for over 30 years. Drinks some alcohol. Family HistoryMother is at 75 with seizure disorder and cancer of the pancreas.Father of lung cancer at 66.Has one sister with hypertension. Thomas Bernstein MD [address] [facility], [facility] [address], [place], [address], [place] [facility] [employer] 03/28/2025 15:39:39 08/01/20 25 text/htm l Patient Name: Hardy Blantonate Of Service: Thursday ( 08.01.2025 ): 1960 Age: 65 There has been approximately a 22 lb weight gain since 03/28/2025. This represents approximately a 15.7% change in weight. Weight change attributable to lifestyle changes. Vital Signs:Blood Pressure: Sitting Rt. Arm 120/78Pulse: Sitting 68 /min and RegularRespiratory Rate: 16Height 72 in or 1.8 mWeight 162 lb or 73.5 kgBMI 22.0Temperature: 97.2 F or 36.2 CPulse Oximetry: 97 % at rest on no oxygen Chief Complaint: Addressed in HPI Problems or conditions discussed in the HPI were the only ones reviewed during the encounter.Only social and family history addressed in the HPI were reviewed during this encounter. A significant, separate E/M service was performed to evaluate the current and new problems. Attendants(s) + NoneConstitutional and Systemic Symptoms:none Medication Reconciliation: from medication list. [id number]: Arterial Doppler shows severe arterial disease in the tibial arteries. Needs further evaluation. Will need to see Cardiology. 06-21-2024: Peripheral arteriogram Severe bilateral superficial femoral artery calcific disease of roughly 80% noted. Severe below the knee disease with single-vessel runoff noted in the left leg and in essence single-vessel runoff noted in the right leg. Occlusion of the anterior tibial arteries bilaterally. 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 Severe anterior tibial artery diseases bilaterally. Unable to get correct CARLOS is due to Medical calcinosis of the arterial garcia. 08-11-2024: Carotid US <50% narrowing of both ICA with antegrade flow in the vertebral. 10-04-2024: Pharmacological stress shows showed a normal sinus rhythm left ventricular hypertrophy. Normal exercise produced ECG with no ST segment or T-wave changes with exercise. Normal left ventricular size left ventricular ejection fraction 72%. Normal myocardial perfusion with no evidence of ischemia or scar 11-11-2024: Echocardiogram shows an estimated ejection fraction of 60%. Mild mitral valve regurgitation. Mild aortic valve regurgitation. The aortic root is slightly dilated at 4.09 cm and the ascending aorta at 4.37 [id number]: arterial Doppler showed [id number] atherosclerotic changes with normal arterial blood flow noted in both lower extremities. Unable to accurately discern ABIs due to hardened [id number]: Renal artery ultrasound normal no evidence any renal artery stenosis History of Present Illness Reviewed the findings of the preventative health visit. Addressed all areas with the patient, patient's family or caregivers. Preventative examinations and testing immunizations - vaccinations, colonic neoplasm screening and PSA all reviewed and ordered where patient was amenable to the recommendations. Cognitive function see HPI but demonstrated no overall change in cognitive status . Depression addressed and where necessary medications were adjusted or instituted. End of life and living will briefly discussed with patient and where these can be filled out and legally executed. Other blood and imaging studies were ordered if considered necessary. Other recommendations may be found in the encounter note. #1. Essential Hypertension: Stage: Stage I Interval Neurological Complaints no headaches, dizziness, weakness, visual changes, ataxia, aphasia and apraxia. No shortness of breath, orthopnea or cardiovascular symptoms. No other symptoms related to end organ damage. Pressure has been under excellent control. Currently normal. No other end organ symptoms or findings. Therapy reviewed regarding management of hypertension and includes salt restriction and Losartan Potassium and Nifedipine. #2. Type II Hypercholesterolaemia: Currently taking medication and tolerating well. No interval complaints of any muscle pain or arthralgia. No significant liver changes with medications. Last lipid panel: fair control. Therapy reviewed regarding treatment of cholesterol management and include diet and Lipitor. #3. Hx of peripheral vascular disease. There has been no increase in intensity, severity or duration of claudication symptoms. Exertional capacity has remained essentially unchanged. Is able to walk several blocks without developing any claudication. No rest pain noted. #4. History of hyponatremia not associated with any symptoms. Had a repeat sodium which was 32. Was taken off the hydrochlorothiazide. Will check a serum osmolality to further assess whether or not this is true. Does not appear to be either dehydrated, fluid or volume overloaded.: Wellness Evaluation PHQ-2 Score Last Two Weeks Last Two Weeks: 0: Not at all 1: Several Days 2: More than half 3: Almost Every day #1. Little interest or pleasure in doing things: Not At All :Score 0#2. Feeling down, depressed, or hopeless: Not At All :Score 0Score 0FAST Stage: 1 No functional decline Basic ADLS AmbulationNormalGroomingGener al Personal Hygiene NormalToiletrySelf SufficientDressingDresses Without AssistanceEatingSelf Sufficient Instrumental ADLS Managing Finances YesManaging Health YesShopping YesPreparing Meals YesUsing Technology YesHouse Work YesTaking Care of Pets YesTaking Care Children YesTransportation Yes Additional Topics Advanced DirectivesDeclinedLiving WillDeclined Additional Comments Topics listed or those only pertinent to the patient or care givers. Mini Mental Status Exam OrientationYear 1Season 1Month 1Date 1Day 1Score: 5 LocationCountry 1County 1City 1Facility 1Room 1Score: 5 RegistrationHouse 1Car 1Airplane 1Score: 3 AttentionD 1L 1R 1O 1W 1Score: 5 RecallHouse 1Car 1Airplane 1Score: 3 LanguageWatch 1Pencil 1Score: 2 RepetitionNo ifs, ands or buts 1Score: 1 SentenceWrite a Sentence 1Score: 1 ReadingClose Eyes 1Score: 1 PentagonsCopy Design 1Score: 1 CommandHand 1Fold In Half 1Put Down 1Score: 3 Total Test Score: 30 /30 Normal Possible Functional ImpairmentActivities of Daily Living: Probably NormalCommunication: Probably NormalMemory: Probably Normal Social and Physical Activities Drinking History: NoneExercise 20 Minutes per Week: Yes, some of timeDifficulty Driving Car: NoOther Problems:NoneSmoking HistoryDoes not smokeCannabis HistoryDoes Not Use End Of Wellness Section Active Medication ListFlonase 0.05 MG/SPRAY (SPRAY, METERED - NASAL) One [place] Each Nostril As DirectedPlavix 75 MG TABLET, FILM COATED One DailyAspirin 81 MG CAPSULE One DailyLipitor 20 MG TABLET, FILM COATED One DailyLosartan Potassium 25 MG TABLET One DailyNifedipine 30 MG TABLET, EXTENDED RELEASE One DailyTylenol W/Codeine #3 Every Six Hours As NeededEscitalopram 10 MG TABLET Once DailyVitamin C DailyVitamin E Once DailyVitamin B-complex DailyPantoprazole 40 MG (FOR SUSPENSION, DELAYED RELEASE - ORAL) One Daily Adverse Drug Reactions ReviewedNo Known Adverse Drug Reactions! Vaccination and Immunization( ) 2024-09 INFLUENZA(X) 2023-08 Unilife CorporationImmunizations and Vaccinations Discussed and Implemented if feasible In the Office. Else referred to pharmacies. Surgical [id number] Surgery (Left SFA Atherectomy)2024-07 Rt. SFA [id number] Lt. Inguinal Hernia Preventative Testing: (X) Due (?) Optional( ) 04/07/2025 Albumin 4.3 G/DL(X) 04/01/2023 PSA 0.76 NG/ML N 04/01/2024(X) 01/12/2020 DEXA Scan 01/12/2022( ) 01/14/2019 Colonoscopy (10 Years) 01/14/2029Preventative Testing Discussed with Patient and Attendants Social HistorySmokes one pack daily for over 30 years. Drinks some alcohol. Family HistoryMother is at 75 with seizure disorder and cancer of the pancreas.Father of lung cancer at 66.Has one sister with hypertension. Thomas Bernstein MD [address] [facility] [address] [facility], [place], [address], [facility] 08/01/2025 16:24:00
--- OUTSIDE RECORDS SUMMARY | 2025-08-21 12:45 | XMS_ITS | Clinical Summary ---
Author Organization [facility] Address [address] [place] [address] Care Team Providers Care Senior Revenue Accountant Name Role Phone Thomas Bernstein MD Primary Care Provider [phone] [facility],non-owned Affiliates and Associated Physician Practices is amultiple site organization consisting of ambulatory clinics and hospital sitesin [place], [place], [place] and [place]. This disclosure is being madepursuant to the Care Everywhere program and may not contain all information available regarding this patient. 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 Gender Identity Not on file Sexual Orientation Not on file Plan of Treatment Health Maintenance Due Date Last Done Comments COLOGUARD (AGES 45-75) - COL ON CA SCREENING 1958 COLON MONITORING 1958 COLONOSCOPY - COLON CA SCREENING 1958 CT COLONOGRAPHY - COLON CA SCREENING 1960 Colorectal Cancer Screening 1958 FIT - COLON CA SCREENING 1958 FLEX SIG - COLON CA SCREENING 1958 LIPID TESTING 1960 HEPATITIS C SCREENING 03/19/1976 DTAP/TDAP/TD VACCINES (1 - Tdap) 1977 PNEUMOCOCCAL VACCINE 50+ (1 of 1 - PCV) 2008 ZOSTER VACCINE (1 of 2) 2008 DEPRESSION SCREENING 11/23/2024 COVID-19 VACCINE ( - 2023-2 5 season) 2025 INFLUENZA VACCINE (#1) 2025 Respiratory Syncytial Virus (RSV) Vaccine Pt: or over 60 yrs (1 - 1-dose 75+ series) 2033 HEPATITIS B VACCINE Aged Out No longe r eligible based on patient's age to complete this topic HIB VACCINE Aged Out No longer eligi ble based on patient's age to complete this topic HPV VACCINE Aged Out No longer eligi ble based on patient's age to complete this topic MENINGOCOCCAL (Group B) VACC INE SHARED DECISION-MAKING Aged Out No longer eligibl e based on patient's age to complete this topic MENINGOCOCCAL GROUPS A/C/Y/W VACCINE Aged Out No longer eligible b ased on patient's age to complete this topic Insurance [facility] Care Teams Senior Revenue Accountant Relationship Specialty Start Date End Date Thomas Bernstein MD [facility] [address] [address] [place] [address] PCP - General 03/04/18
== END 2025-08-21 12:30 | disposition home or self-care (01) ==
PROVIDERS: PCP Internal Medicine; Visit Provider Internal Medicine
DX: M85.80 Other specified disorders of bone density and structure, unspecified site (principal); M81.0 Age-related osteoporosis without current pathological fracture
CPT/HCPCS: 77080